=== PATIENT | male | born 1965 | race Caucasian/White ===

== ENCOUNTER → 2016-12-11 | Outpatient (CLI) | payer BC ==
[~2016-12-11] MED LIST: ASPI81TA28 PO; LEVO150T PO; MULTTAB5 PO
[2016-12-11 10:15] LABS: BLOOD UREA NITROGEN 18 mg/dl (7-18); BUN/CREATININE RATIO 17.9 (10-20); CALCIUM 9.3 mg/dl (8.5-10.1); CARBON DIOXIDE 31 mmol/L (21-32); CHLORIDE 105 mmol/L (98-107); CHOLESTEROL 198 mg/dl (0-200); CREATININE 0.98 mg/dl (0.60-1.40); GLUCOSE 105 mg/dl (70-99); POTASSIUM 4.5 mmol/L (3.5-5.1); SODIUM 140 mmol/L (136-145)
[2016-12-11 10:27] LABS: CHOLESTEROL/HDL RATIO 3.7; HDL CHOLESTEROL 53 mg/dl; LDL CHOLESTEROL CALCULATED 129 mg/dl; TRIGLYCERIDES 78 mg/dl (0-150); VERY LOW DENSITY LIPOPROT CALC 16 mg/dl
== END | disposition home or self-care (01) ==
LOC: C.LAB1850 08:33
PROVIDERS: ATTEND Internal Medicine
DX: E03.9 Hypothyroidism, unspecified (principal); E78.5 Hyperlipidemia, unspecified; R73.01 Impaired fasting glucose